=== PATIENT | male | born 1970 | race Caucasian/White ===

== ENCOUNTER 2020-02-24 16:10 | Inpatient (IN) | payer MEDICARE, MEDICAID ==
[~2020-02-24] VITALS: Ht 177.8 cm; Wt 84.4 kg
[~2020-02-24 16:10] MED LIST: RISP1 PO
[2020-02-24] MEDS ORDERED: LORazepam 2 MG/ML VIAL ONE (16:14)
[2020-02-24] MEDS ORDERED: DiphenhydrAMINE HCL 50 MG/ML VIAL ONE (16:14)
[2020-02-24] MEDS ORDERED: HALOPERIDOL LACTATE 5 MG/ML VIAL ONE (16:14)
[2020-02-24] MEDS ORDERED: HALOPERIDOL LACTATE 5 MG/ML VIAL IM ONE (16:15)
[2020-02-24] MEDS ORDERED: LORazepam 2 MG/ML VIAL IM ONE (16:15)
[2020-02-24] MEDS ORDERED: DiphenhydrAMINE HCL 50 MG/ML VIAL IM ONE (16:15)
[2020-02-24 16:37] LABS: GLUCOSE,POINT OF CARE 106 MG/DL (70-110)
[2020-02-24 16:58] LABS: BASOPHILS % (AUTO) 1.3 % (0.0-2.0); EOSINOPHILS % (AUTO) 2.2 % (1.0-6.0); HEMATOCRIT 35.3 % (41-53); HEMOGLOBIN 11.8 g/dL (13.5-17.5); LYMPHOCYTES # (AUTO) 1.4 K/uL (1.0-4.8); LYMPHOCYTES % (AUTO) 21.4 % (22.0-44.0); MEAN CORPUSCULAR HEMOGLOBIN 29.3 pg (26.0-34.0); MEAN CORPUSCULAR HGB CONC 33.5 G/dL (31.0-37.0); MEAN CORPUSCULAR VOLUME 88 fL (80-100); MONOCYTES # (AUTO) 0.6 K/uL (0.1-1.0); NEUTROPHILS # (AUTO) 4.1 K/uL (1.8-7.7); NEUTROPHILS % (AUTO) 65.1 % (40.0-70.0); PLATELET COUNT (AUTO) 192 K/uL (150-450); RED BLOOD CELL COUNT(AUTO) 4.03 MIL/uL (4.50-5.90); RED CELL DISTRIBUTION WIDTH 13.5 % (11.5-14.5)
[2020-02-24 17:09] LABS: ANION GAP 11 mmol/L (8-16); CALCIUM, TOTAL 8.5 mg/dL (8.8-10.5); CARBON DIOXIDE 27 mmol/L (22-29); CHLORIDE 104 mmol/L (98-107); CREATININE 0.91 mg/dL (0.60-1.30); GLOMERULAR FILTR. RATE CALC > 60 mL/min (>60); GLUCOSE,RANDOM 85 mg/dL (70-110); POTASSIUM 3.5 mmol/L (3.5-5.1); SODIUM SERUM 142 mmol/L (136-145); UREA NITROGEN, BLOOD 22 mg/dL (7-18)
[2020-02-24 17:15] LABS: ALANINE AMINOTRANSFERASE 51 U/L (12-78); ALBUMIN 3.7 g/dL (3.4-5.0); ALKALINE PHOSPHATASE 69 U/L (46-116); ASPARTATE AMINOTRANSFERASE 57 U/L (15-37); BILIRUBIN,TOTAL 0.4 mg/dL (0.1-1.0); TOTAL PROTEIN, SERUM 6.8 g/dL (6.4-8.2)
[2020-02-25 00:21] LABS: GLUCOSE,POINT OF CARE 85 MG/DL (70-110)
[2020-02-25 02:01] LABS: GLUCOSE,POINT OF CARE 89 MG/DL (70-110)
[2020-02-25 03:12] LABS: APPEARANCE,URINE CLEAR (CLEAR); GLUCOSE, URINE (UA) NEGATIVE (NEGATIVE); KETONES,URINE 15 mg/dL (NEGATIVE); LEUKOCYTE ESTERASE ,URINE NEGATIVE (NEGATIVE); NITRATE,URINE NEGATIVE (NEGATIVE); OCCULT BLOOD,URINE NEGATIVE (NEGATIVE); PROTEIN,URINE NEGATIVE (NEGATIVE); UROBILINOGEN,URINE 0.2 mg/dL (<=1.0)
[2020-02-25 03:14] LABS: BILIRUBIN,URINE PRELIM. POSITIVE (NEGATIVE)
[2020-02-25 03:20] LABS: AMPHET/METH SCREEN,URINE POSITIVE (NEGATIVE); BARBITURATE SCREEN, URINE NEGATIVE (NEGATIVE); BENZODIAZEPINES SCREEN,URINE NEGATIVE (NEGATIVE); CANNABINOID SCREEN,URINE POSITIVE (NEGATIVE); COCAINE SCREEN,URINE NEGATIVE (NEGATIVE); METHADONE SCREEN, URINE NEGATIVE (NEGATIVE); OPIATE SCREEN,URINE NEGATIVE (NEGATIVE)
[2020-02-25 03:23] LABS: PHENCYCLIDINE SCREEN,URINE NEGATIVE (NEGATIVE)
[2020-02-25 03:34] LABS: BACTERIA,URINE None Seen /HPF (None Seen); RBC,URINE 0-2 /HPF (0-2); SQUAMOUS EPITHELIAL CELL,UR Moderate /LPF (None Seen)
[2020-02-25 06:41] LABS: GLUCOSE,POINT OF CARE 142 MG/DL (70-110)
[2020-02-25 08:51] VITALS: BP 106/79
[2020-02-25 08:54] VITALS: BP 106/79
[2020-02-25 15:41] VITALS: BP 102/57
[2020-02-25 17:18] VITALS: BP 102/57
[2020-02-25] MEDS ORDERED: MAG HYDROX/AL HYDROX/SIMETH ES 30 ML SUSPENSION UDCUP PO PRN (19:45)
[2020-02-25] MEDS ORDERED: DOCUSATE SODIUM 100 MG CAPSULE PO PRN (19:45)
[2020-02-25] MEDS ORDERED: LOPERAMIDE HCL 2 MG CAPSULE PO PRN (19:45)
[2020-02-25] MEDS ORDERED: PETROLATUM,WHITE 28 GM JELLY TP PRN (19:45)
[2020-02-25] MEDS ORDERED: ALBUTEROL SULFATE HFA 90 MCG/PUFF 8 GM INHALER IH PRN (19:45)
[2020-02-25] MEDS ORDERED: ONDANSETRON HCL 4 MG TABLET PO PRN (19:45)
[2020-02-25] MEDS ORDERED: NICOTINE 14 MG/24 HOUR PATCH TD PRN (19:45)
[2020-02-25] MEDS ORDERED: IBUPROFEN 400 MG TABLET PO PRN (19:45)
[2020-02-25] MEDS ORDERED: ACETAMINOPHEN 325 MG TABLET PO PRN (19:45)
[2020-02-25] MEDS ORDERED: MAGNESIUM HYDROXIDE SUSPENSION 30 ML UDCUP PO PRN (19:45)
[2020-02-25] MEDS ORDERED: GuaiFENesin/D-METHORPHAN [SUGAR-FREE] 200-20MG/10 ML SYRUP UDCUP PO PRN (19:45)
[2020-02-25] MEDS ORDERED: CloNIDine HCL 0.1 MG TABLET PO PRN (19:45)
[2020-02-25] MEDS: RisperiDONE 1 MG TABLET PO SCH (21:00)
[2020-02-26 02:40] VITALS: BP 116/73
[2020-02-26] MEDS: LORazepam 2 MG TABLET PO PRN ×2 (02:44→11:54)
[2020-02-26 08:15] VITALS: BP 112/62
[2020-02-26] MEDS: RisperiDONE 1 MG TABLET PO SCH ×2 (09:00→20:23)
[2020-02-26] MEDS: DiphenhydrAMINE HCL 50 MG/ML VIAL IM ONE ×2 (12:03→12:20)
[2020-02-26] MEDS: LORazepam 2 MG/ML VIAL IM ONE ×2 (12:03→12:20)
[2020-02-26] MEDS: HALOPERIDOL LACTATE 5 MG/ML VIAL IM ONE ×2 (12:03→12:21)
[2020-02-26 17:56] VITALS: BP 125/83
[2020-02-27 08:15] VITALS: BP 132/90
[2020-02-27] MEDS: LORazepam 2 MG TABLET PO PRN (08:20)
[2020-02-27] MEDS: RisperiDONE 1 MG TABLET PO SCH ×2 (08:46→21:00)
[2020-02-27 09:13] VITALS: BP 132/90
[2020-02-27] MEDS ORDERED: DiphenhydrAMINE HCL 50 MG/ML VIAL ONE (13:10)
[2020-02-27] MEDS ORDERED: DiphenhydrAMINE HCL 50 MG/ML VIAL IM ONE ×2 (13:15→17:45)
[2020-02-27] MEDS ORDERED: LORazepam 2 MG/ML VIAL IM ONE ×2 (13:15→17:45)
[2020-02-27] MEDS ORDERED: HALOPERIDOL LACTATE 5 MG/ML VIAL IM ONE ×2 (13:15→17:45)
[2020-02-28] MEDS: LORazepam 2 MG TABLET PO PRN ×2 (08:46→15:26)
[2020-02-28] MEDS: RisperiDONE 1 MG TABLET PO SCH ×2 (09:00→21:00)
[2020-02-28 16:18] VITALS: BP 117/67
[2020-02-28] MEDS ORDERED: LORazepam 2 MG/ML VIAL ONE (20:14)
[2020-02-28] MEDS ORDERED: LORazepam 2 MG/ML VIAL IM ONE (20:15)
[2020-02-28] MEDS ORDERED: DiphenhydrAMINE HCL 50 MG/ML VIAL IM ONE (20:15)
[2020-02-28] MEDS ORDERED: HALOPERIDOL LACTATE 5 MG/ML VIAL ONE (20:15)
[2020-02-28] MEDS ORDERED: HALOPERIDOL LACTATE 5 MG/ML VIAL IM ONE (20:15)
[2020-02-28] MEDS ORDERED: DiphenhydrAMINE HCL 50 MG/ML VIAL ONE (20:15)
[2020-02-29] MEDS: DIVALPROEX SODIUM 500 MG DR TABLET PO SCH ×2 (09:00→16:09)
[2020-02-29] MEDS ORDERED: RisperiDONE 2 MG TABLET PO SCH (09:00)
[2020-02-29 13:01] VITALS: BP 128/69
[2020-02-29] MEDS: LORazepam 2 MG TABLET PO PRN ×2 (14:59→19:56)
[2020-02-29 15:01] VITALS: BP 124/71
[2020-02-29 16:43] VITALS: BP 134/87
[2020-02-29] MEDS: RisperiDONE 3 MG TABLET PO SCH (20:34)
[2020-03-01] MEDS: DIVALPROEX SODIUM 500 MG DR TABLET PO SCH ×2 (08:02→16:02)
[2020-03-01] MEDS: NALTREXONE HCL 50 MG TABLET PO SCH (08:02)
[2020-03-01] MEDS: RisperiDONE 3 MG TABLET PO SCH ×2 (08:02→20:16)
[2020-03-01] MEDS: LORazepam 2 MG TABLET PO PRN ×3 (08:02→22:18)
[2020-03-01 08:24] VITALS: BP 101/79
[2020-03-01 09:17] LABS: HEMOGLOBIN A1C 5.6 % (3.8-5.6)
[2020-03-01 16:13] VITALS: BP 130/76
[2020-03-01] MEDS: HALOPERIDOL 5 MG TABLET PO PRN (22:18)
[2020-03-02] MEDS: NALTREXONE HCL 50 MG TABLET PO SCH (08:19)
[2020-03-02] MEDS: DIVALPROEX SODIUM 500 MG DR TABLET PO SCH ×2 (08:19→16:20)
[2020-03-02] MEDS: HALOPERIDOL 5 MG TABLET PO PRN (08:19)
[2020-03-02] MEDS: LORazepam 2 MG TABLET PO PRN ×2 (08:19→16:20)
[2020-03-02] MEDS: RisperiDONE 3 MG TABLET PO SCH ×2 (08:20→20:36)
[2020-03-02 09:42] VITALS: BP 106/76
[2020-03-02 16:22] VITALS: BP 114/78
[2020-03-02] MEDS: ZOLPIDEM TARTRATE 10 MG TABLET PO PRN (20:36)
[2020-03-03] MEDS: NALTREXONE HCL 50 MG TABLET PO SCH (08:34)
[2020-03-03] MEDS: RisperiDONE 3 MG TABLET PO SCH (08:35)
[2020-03-03] MEDS: DIVALPROEX SODIUM 500 MG DR TABLET PO SCH (08:35)
[2020-03-03] MEDS ORDERED: HALOPERIDOL LACTATE 5 MG/ML VIAL ONE ×3 (09:15→09:24)
[2020-03-03] MEDS ORDERED: DiphenhydrAMINE HCL 50 MG/ML VIAL ONE (09:15)
[2020-03-03] MEDS ORDERED: LORazepam 2 MG/ML VIAL ONE ×2 (09:15→16:11)
[2020-03-03] MEDS: LORazepam 2 MG TABLET PO PRN (09:15)
[2020-03-03] MEDS ORDERED: DiphenhydrAMINE HCL 50 MG/ML VIAL IM ONE ×2 (09:30→16:15)
[2020-03-03] MEDS ORDERED: HALOPERIDOL LACTATE 5 MG/ML VIAL IM ONE ×2 (09:30→16:15)
[2020-03-03 15:45] VITALS: BP 103/72
[2020-03-03] MEDS ORDERED: LORazepam 2 MG/ML VIAL IM ONE (16:15)
[2020-03-03 17:00] VITALS: BP 103/72
[2020-03-03] MEDS ORDERED: OLANZapine 5 MG RAPDIS TABLET PO SCH (21:00)
[2020-03-04 08:20] VITALS: BP 104/75
[2020-03-04] MEDS: NALTREXONE HCL 50 MG TABLET PO SCH (08:46)
[2020-03-04] MEDS: DIVALPROEX SODIUM 500 MG DR TABLET PO SCH (08:47)
[2020-03-04] MEDS: OLANZapine 5 MG RAPDIS TABLET PO PRN (09:15)
[2020-03-04] MEDS: OLANZapine 10 MG RAPDIS TABLET PO SCH (21:34)
[2020-03-05] MEDS: NALTREXONE HCL 50 MG TABLET PO SCH (08:07)
[2020-03-05] MEDS: DIVALPROEX SODIUM 500 MG DR TABLET PO SCH (08:07)
[2020-03-05] MEDS: LORazepam 2 MG TABLET PO PRN ×2 (08:08→16:32)
[2020-03-05] MEDS: OLANZapine 5 MG RAPDIS TABLET PO PRN ×2 (08:08→16:32)
[2020-03-05 08:30] VITALS: BP 135/72
[2020-03-05 17:45] VITALS: BP 126/78
[2020-03-05] MEDS: OLANZapine 10 MG RAPDIS TABLET PO SCH (20:58)
[2020-03-06] MEDS: NALTREXONE HCL 50 MG TABLET PO SCH (08:26)
[2020-03-06] MEDS: DIVALPROEX SODIUM 500 MG DR TABLET PO SCH (08:26)
[2020-03-06] MEDS: LORazepam 2 MG TABLET PO PRN ×2 (08:28→20:13)
[2020-03-06] MEDS: OLANZapine 5 MG RAPDIS TABLET PO PRN (08:28)
[2020-03-06 16:33] VITALS: BP_SYST 134; BP_SYST 143; BP_DIAS 77; BP_DIAS 79
[2020-03-06] MEDS: OLANZapine 10 MG RAPDIS TABLET PO SCH (20:12)
[2020-03-07 08:19] VITALS: BP 111/86
[2020-03-07] MEDS: NALTREXONE HCL 50 MG TABLET PO SCH (08:42)
[2020-03-07] MEDS: DIVALPROEX SODIUM 500 MG DR TABLET PO SCH (08:42)
[2020-03-07] MEDS: LORazepam 2 MG TABLET PO PRN ×2 (11:17→22:51)
[2020-03-07] MEDS: OLANZapine 5 MG RAPDIS TABLET PO PRN (11:17)
[2020-03-07] MEDS: OLANZapine 10 MG RAPDIS TABLET PO SCH (21:10)
[2020-03-08 08:06] VITALS: BP 113/70
[2020-03-08] MEDS: DIVALPROEX SODIUM 500 MG DR TABLET PO SCH (08:41)
[2020-03-08] MEDS: NALTREXONE HCL 50 MG TABLET PO SCH (08:41)
[2020-03-08 16:17] VITALS: BP 117/74
[2020-03-08] MEDS: LORazepam 2 MG TABLET PO PRN (17:56)
[2020-03-08] MEDS: OLANZapine 10 MG RAPDIS TABLET PO SCH (20:40)
[2020-03-08] MEDS: ZOLPIDEM TARTRATE 10 MG TABLET PO PRN (20:46)
[2020-03-09] MEDS: DIVALPROEX SODIUM 500 MG DR TABLET PO SCH (09:00)
[2020-03-09] MEDS: NALTREXONE HCL 50 MG TABLET PO SCH (09:00)
[2020-03-09 17:50] VITALS: BP 104/53
[2020-03-09] MEDS: OLANZapine 10 MG RAPDIS TABLET PO SCH (20:43)
[2020-03-09] MEDS: LORazepam 2 MG TABLET PO PRN (21:09)
[2020-03-10] MEDS: NALTREXONE HCL 50 MG TABLET PO SCH (08:52)
[2020-03-10] MEDS: DIVALPROEX SODIUM 500 MG DR TABLET PO SCH (08:52)
[2020-03-10 09:37] VITALS: BP 120/76
[2020-03-10 16:26] VITALS: BP 112/70
[2020-03-10] MEDS ORDERED: OLAN10TA22 PO (19:01)
[2020-03-10] MEDS ORDERED: DIVA-78 PO (19:01)
[2020-03-10] MEDS ORDERED: NALT50TA PO (19:01)
[2020-03-10] MEDS: OLANZapine 10 MG RAPDIS TABLET PO SCH (20:14)
[2020-03-11] MEDS: DIVALPROEX SODIUM 500 MG DR TABLET PO SCH (09:09)
[2020-03-11] MEDS: NALTREXONE HCL 50 MG TABLET PO SCH (09:09)
[2020-03-11 09:18] VITALS: BP 137/81
== END 2020-03-11 13:15 | disposition home or self-care (01) | DRG 885 ==
LOC: EMS 16:10 → 3EX 02-25 05:00
PROVIDERS: ADMIT Psychiatry & Neurology Psychiatry; ATTEND Psychiatry & Neurology Psychiatry
DX: F20.0 Paranoid schizophrenia (principal); F15.20 Other stimulant dependence, uncomplicated; R45.851 Suicidal ideations; D64.9 Anemia, unspecified; E11.9 Type 2 diabetes mellitus without complications; I10 Essential (primary) hypertension; J44.9 Chronic obstructive pulmonary disease, unspecified; Z59.0 Homelessness; Z79.899 Other long term (current) drug therapy; Z91.19 Patient's noncompliance with other medical treatment and regimen; F32.9 Major depressive disorder, single episode, unspecified; F90.9 Attention-deficit hyperactivity disorder, unspecified type
CPT/HCPCS: 83036; 96372; 99291; G0378; G0480; J1200; J1630; J2060; Q0162